=== PATIENT | male | born 1990 | race Caucasian/White ===

== ENCOUNTER 2020-07-03 12:57 | Outpatient (REF) | payer OTHER, SELFPAY ==
[2020-07-03 14:02] LABS: MANUAL DIFF FLAG NO
[2020-07-03 14:11] LABS: Basophils Percent Auto 0.6 % (0-2); Eosinophils Absolute Auto 0.1 X10*3/uL (0.0-0.4); Eosinophils Percent Auto 1.3 % (0-4); Hematocrit 41.9 % (42-52); Hemoglobin 14.6 g/dl (14.0-18.0); Imm Gran Abs Auto 0.01 X10*3/uL (0.00-0.03); Imm Gran Pct Auto 0.1 % (0.0-0.4); Lymphocytes Absolute Auto 2.2 X10*3/uL (1.2-4.9); Lymphocytes Percent Auto 31.9 % (20-40); Mean Corpuscular HGB Conc 34.8 g/dl (31.0-36.0); Mean Corpuscular Hemoglobin 32.7 pg (27.0-33.0); Mean Corpuscular Volume 93.9 fL (80-98); Mean Platelet Volume 10.6 fL (9.4-12.4); Monocytes Absolute Auto 0.6 X10*3/uL (0.1-1.2); Monocytes Percent Auto 9.4 % (2-11); Neutrophils Absolute Auto 3.9 X10*3/uL (2.0-8.3); Neutrophils Percent Auto 56.7 % (45-73); Platelet Count 229 X10*3/uL (160-400); Red Blood Count 4.46 X10*6/uL (4.60-5.80); Red Cell Distribution Width 11.6 % (11.0-16.0); White Blood Count 6.8 X10*3/uL (4.8-10.8)
[2020-07-03 14:27] LABS: Glucose Urine UA NEG (NEG); Leukocyte Esterase Urine NEG (NEG); Nitrite Urine NEG (NEG); Specific Gravity - Urine 1.025 (1.005-1.025); Urine Blood NEG (NEG); Urine Ketones NEG (NEG); Urine Protein NEG (NEG-TRACE)
[2020-07-03 14:33] LABS: Appearance Urine HAZY; Color Urine YELLOW
[2020-07-03 14:52] LABS: Alanine Aminotransferase 42 U/L (0-40); Albumin Level 4.4 g/dL (3.5-5.0); Alkaline Phosphatase 47 U/L (39-117); Anion Gap 16 (12-20); Aspartate Amino Transferase 23 U/L (5-37); Bilirubin Total 0.9 mg/dL (0.0-1.0); Blood Urea Nitrogen 14 mg/dL (9-16); Carbon Dioxide 25 mmol/L (22-29); Chloride 102 mmol/L (96-108); Cholesterol 218 mg/dL; Estimated Glomerular Filt Rate > 60; Glucose Fasting 96 mg/dL (60-99); HDL Cholesterol 45 mg/dL; LDL Cholesterol Calculated 151 mg/dl; Potassium 4.4 mmol/l (3.3-5.1); Sodium 139 mmol/L (135-145); Total Protein 7.5 g/dL (6.5-8.0); Triglycerides 111 mg/dL
[2020-07-03 15:03] LABS: TSH reflex Free T4 1.22 mIU/mL (0.32-4.0)
== END 2020-07-03 12:58 | disposition home or self-care (01) ==
LOC: HO.LAB 12:57
PROVIDERS: PCP Internal Medicine; Visit Provider Internal Medicine
DX: Z00.00 Encounter for general adult medical examination without abnormal findings (principal); E66.3 Overweight; F17.200 Nicotine dependence, unspecified, uncomplicated
CPT/HCPCS: 36415; 80053; 80061; 81003; 84443; 85025

== ENCOUNTER 2022-12-30 16:50 | Outpatient (AMB) | payer OTHER, SELFPAY ==
[2022-12-30 16:58] VITALS: BP 104/70; PULSE 85; O2SAT 99; BMI 21.8
--- NOTE | 2022-12-30 16:58 | A.OFFPC_ITS ---
Vital Signs 12/30/22 16:58 Height 5 ft 11 in Weight 156 lb 4 oz BMI 21.8 BP 104/70 Blood Pressure Location Lt brachial Position Sitting Pulse 85 Pulse Source Pulse Oximeter Pulse Oximetry (%) 99 Oxygen Delivery Method Room Air Intake Visit Reasons: Yearly PE Exercise Specialist Required: No Accompanied by: Self / Same As Patient Allergies amoxicillin Adverse Reaction (Unknown, Verified 12/30/22 17:23) rash Medication List - Last Reconciled 12/30/22 by Kash Pacheco MD No Known Home Meds Tobacco use date assessed: 12/30/22 Dental Screening Dental Screen Date: 12/30/22 Did you have a dental visit in the last 12 months?: Yes Did you have a dental problem in the last 6 months where you did not have access to dental care?: No Was dental information given to patient?: Patient has dentist HPI Yearly PE HPI Details Patient comes in today for his annual physical examination States that he feels okay He has been sober for almost a year now (went to rehab a couple of times last year) States that he has also been trying to eat healthier but has been experiencing increasing anxiety lately, which he feels is making it more difficult for him to implement the lifestyle changes that he wants to do States that he currently has a 5-year-old son and would like to be around for him Patient used to take Fluoxetine but states that he has not been taking it for a while now - does not even remember when he actually stopped taking the medication and why he stopped it; did not also think he was taking it consistently back when he was on it Would also like to continue working on quitting smoking - was called in Rx for Nicotine patches, per his request, a couple of months ago but states that he never went to medicinal plant picker his Rx then and would like to have these prescribed again He denies any headaches or dizziness Denies any chest pains, no shortness of breath No nausea/ vomiting, no abdominal pain No change in bowel habits noted Denies any acute urinary symptoms Patient also did not get his labs ordered last year done so it has been a while since he had any follow-up labs done [facility] Medical History Anxiety Depression ETOH abuse Generalized anxiety disorder Smoker Surgical History No significant past surgical history Family History Mother Esophageal cancer Father No problems noted. Other Substance abuse Social History Housing: House Alcohol intake: former Patient Tobacco Use Status: Current everyday Tobacco user Cigarette Packs Per Day: 2 Second Hand Smoke Exposure: Yes service: No Current occupational status: employed Cognitive needs: No Hearing needs: No Vision needs: No Questionnaire PHQ-9 Over the last 2 weeks, how often have you been bothered by any of the following problems? 1. Little interest or pleasure in doing things: not at all 2. Feeling down, depressed, or hopeless: not at all 3. Trouble falling or staying asleep, or sleeping too much: not at all 4. Feeling tired or having little energy: not at all 5. Poor appetite or overeating: not at all 6. Feeling bad about yourself - or that you are a failure or have let yourself or your family down: not at all 7. Trouble concentrating on things, such as reading the newspaper or watching television: not at all 8. Moving or speaking so slowly that other people could have noticed. Or the opposite - being so fidgety or restless that you have been moving around a lot more than usual: not at all 9. Thoughts that you would be better off or of hurting yourself in some way: not at all Total score: 0 Depression Screening Interpretation: Positive Depression Screening Follow-up: Existing condition and In treatment 22017 - PHQ-9 Billing: Yes Source: Developed by Drs. Christian Bernal, Romelia Donahue, Bharath Strange and colleagues, with an educational to from [employer]. Thrive Questionnaire Date Thrive assessed: 12/30/22 I am a: Patient What is your living situation today?: I have a steady place to live Within the past 12 months, did the food you bought not last and you didn't have the money to get more?: Never true Within the past 12 months, did you worry whether your food would run out before you got money to buy more?: Never true Do you have trouble paying for medicines?: No Do you have trouble getting transportation to medical appointments?: No Do you have trouble paying your heating and electricity bill?: No Do you have trouble taking care of your child, family member or friend?: No Do you have trouble with day-to-day activities such as bathing, preparing meals, shopping, managing finances, etc.?: No Are you currently unemployed and looking for a job?: No Are you interested in more education?: No Please select the resources that you would like help with: None Currently or been in a relationship where the following occur: no concerns reported AUDIT C Alcohol Use Questionnaire (AUDIT-C) 1. How often do you have a drink containing alcohol?: Never 3. How often do you have six or more drinks on one occasion?: Never Total Score: 0 Score Reviewed/Action Taken: Yes KAL-7 AMB Questionnaire KAL-7 Date KAL - 7 assessed: 12/30/22 Feeling nervous, anxious, or on edge: 3 = Nearly every day Not being able to stop or control worryin = Nearly every day Worrying too much about different things: 3 = Nearly every day Trouble relaxin = Nearly every day Being so restless that it is hard to sit still: 3 = Nearly every day Becoming easily annoyed or irritable: 3 = Nearly every day Feeling afraid as if something awful might happen: 3 = Nearly every day Total KAL-7 score (0-4 normal; 5-9 mild; 10-14 moderate; 15-21 severe): 21 Source: Developed by Drs. Christian Bernal, Romelia Donahue, Bharath Strange and colleagues, with an educational to from [employer]. Review of Systems Const Denies chills, Denies difficulty sleeping, Denies fatigue, Denies fever(s), Denies headache(s), Denies malaise and Denies weakness Eyes Denies blurry vision, Denies change in vision, Denies irritation and Denies itchy eyes ENT Denies dysphagia, Denies dizziness, Denies otalgia, Denies headache(s), Denies nasal congestion, Denies neck pain, Denies odynophagia and Denies sore throat Card Denies chest pain, Denies rapid heart rate, Denies irregular heart rhythm, Denies palpitations and Denies dyspnea Resp Denies chest congestion, Denies cough, Denies dyspnea and Denies wheezing GI Denies abdominal pain, Denies bloating, Denies constipation, Denies dysphagia, Denies heartburn, Denies diarrhea, Denies nausea, Denies odynophagia and Denies vomiting Denies hematuria, Denies difficulty urinating, Denies dysuria, Denies urinary frequency and Denies urinary urgency Musc Denies back pain, Denies arthralgias, Denies joint swelling, Denies muscle weakness and Denies neck pain Skin/Breast Denies change in pigmentation, Denies lesions, Denies rash and Denies unusual bruising Neuro Denies dizziness, Denies headache(s), Denies paresthesias and Denies weakness Psych Reports anxiety (increasing) and Denies depression Endo Denies fatigue and Denies palpitations Aller/Immun Denies itchy eyes and Denies wheezing Physical exam (Primary Care) Vital Signs: Last Vital Signs Pulse 85 12/30/22 16:58 BP 104/70 12/30/22 16:58 Pulse Ox 99 12/30/22 16:58 Oxygen Delivery Method Room Air 12/30/22 16:58 BMI result Body Mass Index 21.8 Tobacco/Smoking Status: Tobacco use Status Tobacco use date assessed 12/30/22 12/30/22 17:05 Patient Tobacco Use Status Current everyday Tobacco 12/30/22 17:05 PHQ-9: PHQ-9 Score PHQ-9: Total score 0 12/30/22 17:24 Depression Screening Interpretation: Positive Depression Screening Follow-up: Existing condition and In treatment Thrive Assessment: Date of Thrive Assessment Date Thrive assessed 12/30/22 12/30/22 17:05 Currently or been in a relationship where the following occur: no concerns reported Const General: no acute distress, alert and awake Orientation/consciousness: patient oriented x3 HENMT Head: Yes normocephalic and Yes atraumatic Ears: external ears normal, TM's normal bilaterally and EAC's normal General nose exam: No nasal discharge present Face and sinus: Yes normal facial exam and Yes sinuses nontender Teeth and gingiva: dentition normal Throat: Yes posterior oropharynx normal and Yes tonsils normal (no TP congestion) Eyes Eyelids: Yes eyelids normal Conjunctivae: conjunctivae normal Pupils: Equal, round and reactive pupils present EOM: EOMs intact bilaterally Neck Neck: Yes no lymphadenopathy and Yes supple Thyroid: Thyroid normal Resp Auscultation: clear to auscultation bilaterally, no rales and no wheezes Cardio Rate: regular rate Rhythm: regular rhythm Heart sounds: no murmurs GI Palpation (GI): Soft to palpation, nontender and No hepatosplenomegaly present Auscultation: normal bowel sounds General: Yes no CVA tenderness Back/Spine/Pelvis Back: no CVA tenderness Thoracic/Lumbar Spine: thoracic and lumbar spine normal to inspection Skin Lesions: no lesions Rashes: no rashes Neuro General: patient oriented x3, moves all extremities, no focal motor deficits and CN's II-XI intact bilaterally Cranial nerves: Yes Equal, round and reactive pupils present Cognition (Neuro): normal cognition Gait exam (Neuro): Normal gait present Extrem General: Yes no clubbing, cyanosis or edema Assessment and Plan Assessment & Plan (1) Annual physical exam: Code(s): Z00.00 - Encounter for general adult medical examination without abnormal findings Plan: Check labs (2) ETOH abuse: Code(s): F10.10 - Alcohol abuse, uncomplicated Plan: Has been sober for almost a year now and feels that he is doing very well Has been treated with Naltrexone tablets in the past and switched to Vivitrol injections by [facility] in [place] last year but is now OFF all medications; also went to rehab a couple of times last year (3) Anxiety: Code(s): F41.9 - Anxiety disorder, unspecified Plan: Continue Lorazepam 0.5 mg QD PRN; will start him on Bupropion XL 150 mg QD Follow up with mental health therapist as scheduled (4) Depression: Code(s): F32.A - Depression, unspecified Qualifiers: Depression Type: major depressive disorder Major depression recurrence: recurrent Active/Remission status: currently active Major depression episode severity: unspecified Qualified Code(s): F33.9 - Major depressive disorder, recurrent, unspecified Plan: Follow up with therapist/counselor as scheduled Will be started on Bupropion XL 150 mg QD (5) Smoker: Code(s): F17.200 - Nicotine dependence, unspecified, uncomplicated Plan: Counseled again on smoking cessation Was prescribed Nicotine patches before but admits that he never started using them but is now willing to do so - Rx resent Plan Follow up in 3 months Orders: Orders Complete Blood Count Auto Diff 12/30/22 Z00.00 - Encounter for general adult medical examination without abnormal findings Comprehensive [place]. Panel Fast 12/30/22 Z00.00 - Encounter for general adult medical examination without abnormal findings Lipid Panel 12/30/22 E78.00 - Pure hypercholesterolemia, unspecified, Z00.00 - Encounter for general adult medical examination without abnormal findings TSH reflex Free T4 12/30/22 E78.00 - Pure hypercholesterolemia, unspecified, Z00.00 - Encounter for general adult medical examination without abnormal findings UA CC w/rflx Micro + Cult 12/30/22 R30.0 - Dysuria, Z00.00 - Encounter for general adult medical examination without abnormal findings Vitamin D 25-OH Total 12/30/22 E55.9 - Vitamin D deficiency, unspecified, Z00.00 - Encounter for general adult medical examination without abnormal findings Medications: New bupropion HCl 150 mg PO QAM 30 days 30 tabs 3RF Refilled nicotine 1 patch transdermal DAILY 7 days 7 ea 0RF F17.200 - Nicotine dependen ce, unspecified, uncomplicated nicotine 1 patch transdermal Q24H 28 days 28 ea 3RF F17.200 - Nicotine dependence, unspecified, uncomplicated nicotine 1 patch transdermal DAILY 7 days 7 ea 0RF F17.200 - Nicotine dependence, unspecified, uncomplicated lorazepam 0.5 mg PO BEDTIME 30 days PRN 15 tabs 0RF anxiety F41.9 - Anxiety disorder, unspecified Coding Level of Care Code Est Pt Prev Care 18-39y(77024) Diagnoses Annual physical exam Z00.00 ETOH abuse F10.10 Anxiety F41.9 Depression F33.9 Depression Type: major depressive disorder Major depression recurrence: recurrent Active/Remission status: currently active Major depression episode severity: unspecified Smoker F17.200
== END 2022-12-30 17:51 | disposition home or self-care (01) ==
PROVIDERS: PCP Internal Medicine; Visit Provider Internal Medicine
DX: Z00.00 Encounter for general adult medical examination without abnormal findings (principal); F41.9 Anxiety disorder, unspecified; F33.9 Major depressive disorder, recurrent, unspecified; F17.200 Nicotine dependence, unspecified, uncomplicated; F10.10 Alcohol abuse, uncomplicated
CPT/HCPCS: 99395

== ENCOUNTER 2023-06-16 11:26 | Outpatient (REF) | payer OTHER, SELFPAY ==
[2023-06-16 11:55] LABS: MANUAL DIFF FLAG NO
[2023-06-16 12:18] LABS: Basophils Absolute Auto 0.1 X10*3/uL (0.0-0.2); Basophils Percent Auto 1.1 % (0-2); Eosinophils Absolute Auto 0.2 X10*3/uL (0.0-0.4); Eosinophils Percent Auto 2.8 % (0-4); Hematocrit 42.8 % (42.0-52.0); Hemoglobin 14.3 g/dl (14.0-18.0); Imm Gran Abs Auto 0.02 X10*3/uL (0.00-0.03); Imm Gran Pct Auto 0.4 % (0.0-0.4); Lymphocytes Absolute Auto 2.2 X10*3/uL (1.2-4.9); Lymphocytes Percent Auto 41.1 % (20-40); Mean Corpuscular HGB Conc 33.4 g/dl (31.0-36.0); Mean Corpuscular Hemoglobin 30.9 pg (27.0-33.0); Mean Corpuscular Volume 92.4 fL (80.0-98.0); Mean Platelet Volume 9.8 fL (9.4-12.4); Monocytes Absolute Auto 0.4 X10*3/uL (0.1-1.2); Monocytes Percent Auto 7.8 % (2-11); Neutrophils Absolute Auto 2.5 x10*3/uL (2.0-8.3); Neutrophils Percent Auto 46.8 % (45-73); Platelet Count 253 X10*3/uL (160-400); Red Blood Count 4.63 X10*6/uL (4.60-5.80); Red Cell Distribution Width 12.3 % (11.0-16.0); White Blood Count 5.4 X10*3/uL (4.8-10.8)
[2023-06-16 12:46] LABS: Appearance Urine Clear; Color Urine Yellow; Glucose Urine UA Negative (Negative); Leukocyte Esterase Urine Negative (Negative); Nitrite Urine Negative (Negative); PH 6.5 (5.0-9.0); Specific Gravity - Urine 1.015 (1.005-1.025); Urine Blood Negative (Negative); Urine Ketones Negative (Negative); Urine Protein Negative (Neg-Trace)
[2023-06-16 12:54] LABS: Alanine Aminotransferase 21 U/L (0-40); Albumin Level 4.2 g/dL (3.5-5.0); Alkaline Phosphatase 55 U/L (39-117); Anion Gap 10 (12-20); Aspartate Amino Transferase 17 U/L (5-37); Bilirubin Total 0.4 mg/dL (0.0-1.0); Blood Urea Nitrogen 8 mg/dL (9-16); Calcium 9.3 mg/dL (8.4-10.2); Carbon Dioxide 28 mmol/L (22-29); Chloride 108 mmol/L (96-108); Cholesterol 164 mg/dL (<200); Estimated Glomerular Filt Rate > 60; Glucose Fasting 103 mg/dL (60-99); HDL Cholesterol 43 mg/dL (>40); LDL Cholesterol Calculated 116 mg/dL (<100); Potassium 4.3 mmol/L (3.3-5.1); Sodium 142 mmol/L (135-145); Total Protein 7.1 g/dL (6.5-8.0); Triglycerides 29 mg/dL (<150)
[2023-06-16 13:11] LABS: TSH reflex Free T4 0.82 uIU/mL (0.32-4.0)
== END 2023-06-16 11:27 | disposition home or self-care (01) ==
LOC: HO.LAB 11:26
PROVIDERS: PCP Internal Medicine; Visit Provider Internal Medicine
DX: Z00.00 Encounter for general adult medical examination without abnormal findings (principal); E55.9 Vitamin D deficiency, unspecified; E78.00 Pure hypercholesterolemia, unspecified; R30.0 Dysuria
CPT/HCPCS: 36415; 80053; 80061; 81003; 82306; 84443; 85025

== ENCOUNTER 2023-06-21 15:58 | Outpatient (AMB) | payer OTHER, SELFPAY ==
[2023-06-21 15:58] VITALS: BP 110/80; PULSE 98; O2SAT 99; BMI 22.1
--- NOTE | 2023-06-21 15:58 | A.OFFPC_ITS ---
Vital Signs 06/21/23 15:58 Height 5 ft 11 in Weight 158 lb 6 oz BMI 22.1 BP 110/80 Blood Pressure Location Lt brachial Position Sitting Pulse 98 Pulse Source Pulse Oximeter Pulse Oximetry (%) 99 Oxygen Delivery Method Room Air Intake Visit Reasons: Anxiety/ Labs Follow Up Seismograph Computer Required: No Accompanied by: Self / Same As Patient Allergies amoxicillin Adverse Reaction (Unknown, Verified 06/21/23 16:24) rash Medication List - Last Reconciled 06/21/23 by Kash Pacheco MD nicotine 1 patch transdermal DAILY 7 days nicotine 1 patch transdermal Q24H 28 days nicotine 1 patch transdermal DAILY 7 days Tobacco use date assessed: 06/21/23 Dental Screening Dental Screen Date: 06/21/23 Did you have a dental visit in the last 12 months?: Yes Did you have a dental problem in the last 6 months where you did not have access to dental care?: No Was dental information given to patient?: Patient has dentist HPI Anxiety/ Labs Follow Up HPI Details Patient comes in today for his follow up visit States that he feels okay States that he now has a new job and his anxiety has been doing much better lately Admits that he never started on the Bupropion and Clonazepam that he was prescribed months ago and prefers not to take the Rx if he can avoid it States that he has been attending therapy/counseling and feels that these have helped a lot He denies any headaches or dizziness Denies any chest pains, no SOB No nausea/vomiting, no abdominal pain No change in bowel habits noted He would like to get a refill on his nicotine patches - was able to quit smoking but picked it up again over the recent holidays Had his follow up labs done a few days ago - to discuss his results [facility] Medical History (Updated 06/21/23 @ 16:37 by Kash Pacheco MD) Vitamin D deficiency Pure hypercholesterolemia Depression ETOH abuse Smoker Anxiety Generalized anxiety disorder Surgical History No significant past surgical history Family History Mother Esophageal cancer Father No problems noted. Other Substance abuse Social History Housing: House Alcohol intake: former Patient Tobacco Use Status: Current everyday Tobacco user Cigarette Packs Per Day: 2 e-Cigarette/Vaping Use: Never Used Second Hand Smoke Exposure: Yes service: No Current occupational status: employed Cognitive needs: No Hearing needs: No Vision needs: No Questionnaire PHQ-9 Over the last 2 weeks, how often have you been bothered by any of the following problems? 1. Little interest or pleasure in doing things: not at all 2. Feeling down, depressed, or hopeless: not at all 3. Trouble falling or staying asleep, or sleeping too much: not at all 4. Feeling tired or having little energy: not at all 5. Poor appetite or overeating: not at all 6. Feeling bad about yourself - or that you are a failure or have let yourself or your family down: not at all 7. Trouble concentrating on things, such as reading the newspaper or watching television: not at all 8. Moving or speaking so slowly that other people could have noticed. Or the opposite - being so fidgety or restless that you have been moving around a lot more than usual: not at all 9. Thoughts that you would be better off or of hurting yourself in some way: not at all Total score: 0 Depression Screening Interpretation: Positive Depression Screening Follow-up: Existing condition and In treatment Depression Screening Done: Yes 24488 - PHQ-9 Billing: Yes Source: Developed by Drs. Christian Bernal, Romelia Donahue, Bharath Strange and colleagues, with an educational to from [employer]. Thrive Questionnaire Date Thrive assessed: 06/21/23 I am a: Patient What is your living situation today?: I have a steady place to live Within the past 12 months, did the food you bought not last and you didn't have the money to get more?: Never true Within the past 12 months, did you worry whether your food would run out before you got money to buy more?: Never true Do you have trouble paying for medicines?: No Do you have trouble getting transportation to medical appointments?: No Do you have trouble paying your heating and electricity bill?: No Do you have trouble taking care of your child, family member or friend?: No Do you have trouble with day-to-day activities such as bathing, preparing meals, shopping, managing finances, etc.?: No Are you currently unemployed and looking for a job?: No Are you interested in more education?: No Please select the resources that you would like help with: None Currently or been in a relationship where the following occur: no concerns re ported AUDIT C Alcohol Use Questionnaire (AUDIT-C) 1. How often do you have a drink containing alcohol?: Never 3. How often do you have six or more drinks on one occasion?: Never Total Score: 0 Score Reviewed/Action Taken: Yes KAL-7 AMB Questionnaire KAL-7 Date KAL - 7 assessed: 06/21/23 Feeling nervous, anxious, or on edge: 1 = Several days Not being able to stop or control worryin = Several days Worrying too much about different things: 1 = Several days Trouble relaxin = Several days Being so restless that it is hard to sit still: 1 = Several days Becoming easily annoyed or irritable: 1 = Several days Feeling afraid as if something awful might happen: 1 = Several days Total KAL-7 score (0-4 normal; 5-9 mild; 10-14 moderate; 15-21 severe): 7 Source: Developed by Drs. Christian Bernal, Romelia Donahue, Bharath Strange and colleagues, with an educational to from [employer]. Review of Systems Const Denies chills, Denies difficulty sleeping, Denies fatigue, Denies fever(s) and Denies headache(s) ENT Denies dysphagia, Denies dizziness, Denies otalgia, Denies headache(s), Denies neck pain, Denies odynophagia and Denies sore throat Card Denies chest pain, Denies rapid heart rate, Denies irregular heart rhythm, Denies palpitations and Denies dyspnea Resp Denies chest congestion, Denies cough, Denies dyspnea and Denies wheezing GI Denies abdominal pain, Denies constipation, Denies dysphagia, Denies heartburn, Denies diarrhea, Denies nausea, Denies odynophagia and Denies vomiting Denies difficulty urinating, Denies dysuria and Denies urinary frequency Musc Denies back pain, Denies arthralgias and Denies neck pain Skin/Breast Denies rash Neuro Denies dizziness, Denies headache(s) and Denies paresthesias Psych Denies anxiety (much better lately) and Denies depression Endo Denies fatigue and Denies palpitations Aller/Immun Denies wheezing Physical exam (Primary Care) Vital Signs: Last Vital Signs Pulse 98 06/21/23 15:58 BP 110/80 06/21/23 15:58 Pulse Ox 99 06/21/23 15:58 Oxygen Delivery Method Room Air 06/21/23 15:58 BMI result Body Mass Index 22.1 Tobacco/Smoking Status: Tobacco use Status Tobacco use date assessed 06/21/23 06/21/23 16:01 Patient Tobacco Use Status Current everyday Tobacco 06/21/23 16:01 e-Cigarette/Vaping Use Never Used 06/21/23 16:01 PHQ-9: PHQ-9 Score PHQ-9: Total score 0 06/21/23 16:08 Depression Screening Interpretation: Positive Depression Screening Follow-up: Existing condition and In treatment Thrive Assessment: Date of Thrive Assessment Date Thrive assessed 06/21/23 06/21/23 16:01 Currently or been in a relationship where the following occur: no concerns reported Const General: no acute distress and alert HENMT Ears: TM's normal bilaterally and EAC's normal Throat: Yes posterior oropharynx normal and Yes tonsils normal (no TP congestion) Neck Neck: Yes no lymphadenopathy and Yes supple Resp Auscultation: clear to auscultation bilaterally, no rales and no wheezes Cardio Rate: regular rate Rhythm: regular rhythm Heart sounds: no murmurs GI Palpation (GI): Soft to palpation, nontender and No hepatosplenomegaly present Skin General skin exam: no rashes or lesions noted Extrem General: Yes no clubbing, cyanosis or edema Results Reviewed Results Reviewed: Laboratory Tests 06/16/23 06/16/23 06/16/23 11:47 11:47 11:50 WBC 5.4 Hgb 14.3 Hct 42.8 Plt Count 253 Sodium 142 Potassium 4.3 Creatinine 0.87 Estimated GFR > 60 Fasting Glucose 103 H Calcium 9.3 AST 17 ALT 21 Triglycerides Cholesterol LDL Cholesterol, Calc 116 H HDL Cholesterol 43 25-OH Vitamin D Total 17.0 L TSH 0.82 Ur Specific [place] 1.015 Urine Protein Negative Urine Glucose (UA) Negative Urine Blood Negative Urine Nitrite Negative Ur Leukocyte Esterase Negative 01/10/24 01/10/24 11:50 11:50 WBC Hgb Hct Plt Count Sodium Potassium Creatinine Estimated GFR Fasting Glucose Calcium AST ALT Triglycerides 29 Cholesterol 164 LDL Cholesterol, Calc HDL Cholesterol 25-OH Vitamin D Total TSH Ur Specific [place] Urine Protein Urine Glucose (UA) Urine Blood Urine Nitrite Ur Leukocyte Esterase Assessment and Plan Assessment & Plan (1) Pure hypercholesterolemia: Code(s): E78.00 - Pure hypercholesterolemia, unspecified Plan: Results of his labs done a few days ago reviewed and discussed with patient - is advised that his recent cholesterol numbers have improved significantly from his numbers back in 2020 Reinforced low cholesterol diet (2) Vitamin D deficiency: Code(s): E55.9 - Vitamin D deficiency, unspecified Plan: Advised that his Vitamin D level was very low on his recent labs Will start him on Vitamin D3 2000 units QD (3) ETOH abuse: Code(s): F10.10 - Alcohol abuse, uncomplicated Plan: Has been sober for over a year now and feels that he is doing very well Has been treated with Naltrexone tablets in the past and switched to Vivitrol injections by [facility] in [place] last year but is now OFF all medications; also went to rehab a couple of times last year (4) Anxiety: Code(s): F41.9 - Anxiety disorder, unspecified Plan: He was started on Lorazepam 0.5 mg QD PRN and Bupropion XL 150 mg QD at his last visit but he admits that he never started taking the medications Follow up with mental health therapist as scheduled (5) Depression: Code(s): F32.A - Depression, unspecified Qualifiers: Depression Type: major depressive disorder Major depression recurrence: recurrent Active/Remission status: currently active Major depression episode severity: unspecified Qualified Code(s): F33.9 - Major depressive disorder, recurrent, unspecified Plan: Follow up with therapist/counselor as scheduled Was previously prescribed Bupropion XL 150 mg QD but admits that he never started taking the Rx and feels that he is doing much better now and does not need to go on Rx at this time (6) Smoker: Code(s): F17.200 - Nicotine dependence, unspecified, uncomplicated Plan: Counseled again on smoking cessation Will start him back on Nicotine patches to help him quit smoking again Plan To return in 6 months for his next annual physical examination Medications: New cholecalciferol (vitamin D3) 50 mcg PO DAILY 90 days 90 caps 3RF E55.9 - Vitamin D deficiency, unspecified Refilled nicotine 1 patch transdermal Q24H 28 days 28 ea 3RF F17.200 - Nicotine d ependence, unspecified, uncomplicated nicotine 1 patch transdermal DAILY 7 days 7 ea 0RF F17.200 - Nicotine dependence, unspecified, uncomplicated nicotine 1 patch transdermal DAILY 7 days 7 ea 0RF F17.200 - Nicotine dependence, unspecified, uncomplicated Coding Level of Care Code Est Pt Level 4 (40631) Diagnoses Pure hypercholesterolemia E78.00 Vitamin D deficiency E55.9 ETOH abuse F10.10 Anxiety F41.9 Episode of recurrent major depressive disorder, unspecified depression episode severity F33.9 Depression Type: major depressive disorder Major depression recurrence: recurrent Active/Remission status: currently active Major depression episode severity: unspecified Smoker F17.200
== END 2023-06-21 16:32 | disposition home or self-care (01) ==
PROVIDERS: PCP Internal Medicine; Visit Provider Internal Medicine
DX: E78.00 Pure hypercholesterolemia, unspecified (principal); F33.9 Major depressive disorder, recurrent, unspecified; E55.9 Vitamin D deficiency, unspecified; F10.10 Alcohol abuse, uncomplicated; F41.9 Anxiety disorder, unspecified; F17.210 Nicotine dependence, cigarettes, uncomplicated
CPT/HCPCS: 99214

== ENCOUNTER 2024-01-03 15:02 | Outpatient (AMB) | payer OTHER, SELFPAY ==
[2024-01-03 15:04] VITALS: BP 118/72; PULSE 101; O2SAT 97; BMI 22.6
--- NOTE | 2024-01-03 15:04 | MHC.PC.OV ---
Vital Signs 01/03/24 15:04 Height 5 ft 11 in Weight 162 lb 0.4 oz BMI 22.6 BP 118/72 Blood Pressure Location Lt brachial Position Sitting Pulse 101 H Pulse Source Pulse Oximeter Pulse Oximetry (%) 97 Oxygen Delivery Method Room Air Intake Visit Reasons: Annual Exam Intake Note: Patient is here today for a physical. Community Development Aide Required: No Allergies amoxicillin Adverse Reaction (Unknown, Verified 01/09/24 20:54) rash Medication List - Last Reconciled 01/09/24 by Kash Pacheco MD cholecalciferol (vitamin D3) 50 mcg PO DAILY 90 days lorazepam 0.5 mg PO BEDTIME PRN 30 days nicotine 1 patch transdermal Q24H 28 days nicotine 1 patch transdermal DAILY 7 days nicotine 1 patch transdermal DAILY 7 days Tobacco use date assessed: 01/03/24 Dental Screening Dental Screen Date: 01/03/24 Did you have a dental visit in the last 12 months?: Yes Did you have a dental problem in the last 6 months where you did not have access to dental care?: No Was dental information given to patient?: Patient has dentist HPI Annual Exam HPI Details Patient comes in today for his annual physical examination States that he feels okay He denies any headaches or dizziness Denies any chest pains, no shortness of breath No nausea/ vomiting, no abdominal pain No change in bowel habits noted He denies any acute urinary symptoms He continues to attend his therapy/counseling sessions regularly and feels that they are helping a lot Needs his Lorazepam Rx refilled today He would also like to know how he did on his labs done back in June 2023 [facility] Medical History Vitamin D deficiency Pure hypercholesterolemia Depression ETOH abuse Smoker Anxiety Generalized anxiety disorder Surgical History No significant past surgical history Family History Mother Esophageal cancer Father No problems noted. Other Substance abuse Social History Housing: House Alcohol intake: former Patient Tobacco Use Status: Current everyday Tobacco user Tobacco use type: Cigarette Cigarette Packs Per Day: 1 e-Cigarette/Vaping Use: Never Used Second Hand Smoke Exposure: Yes service: No Current occupational status: employed Cognitive needs: No Hearing needs: No Vision needs: No Questionnaire PHQ-9 Over the last 2 weeks, how often have you been bothered by any of the following problems? 1. Little interest or pleasure in doing things: not at all 2. Feeling down, depressed, or hopeless: not at all 3. Trouble falling or staying asleep, or sleeping too much: not at all 4. Feeling tired or having little energy: not at all 5. Poor appetite or overeating: not at all 6. Feeling bad about yourself - or that you are a failure or have let yourself or your family down: not at all 7. Trouble concentrating on things, such as reading the newspaper or watching television: not at all 8. Moving or speaking so slowly that other people could have noticed. Or the opposite - being so fidgety or restless that you have been moving around a lot more than usual: not at all 9. Thoughts that you would be better off or of hurting yourself in some way: not at all Total score: 0 Depression Screening Interpretation: Positive Depression Screening Follow-up: Existing condition and In treatment Depression Screening Done: Yes 39888 - PHQ-9 Billing: Yes Source: Developed by Drs. Christian Bernal, Romelia Donahue, Bharath Strange and colleagues, with an educational to from [employer]. Thrive Questionnaire Date Thrive assessed: 06/21/23 I am a: Patient What is your living situation today?: I have a steady place to live Within the past 12 months, did the food you bought not last and you didn't have the money to get more?: Never true Within the past 12 months, did you worry whether your food would run out before you got money to buy more?: Never true Do you have trouble paying for medicines?: No Do you have trouble getting transportation to medical appointments?: No Do you have trouble paying your heating and electricity bill?: No Do you have trouble taking care of your child, family member or friend?: No Do you have trouble with day-to-day activities such as bathing, preparing meals, shopping, managing finances, etc.?: No Are you currently unemployed and looking for a job?: No Are you interested in more education?: No Please select the resources that you would like help with: None Currently or been in a relationship where the following occur: No concerns reported THRIVE Score: 0 AUDIT C Alcohol Use Questionnaire (AUDIT-C) 1. How often do you have a drink containing alcohol?: Never 3. How often do you have six or more drinks on one occasion?: Never Total Score: 0 Score Reviewed/Action Taken: Yes KAL-7 AMB Questionnaire KAL-7 Date KAL - 7 assessed: 06/21/23 Feeling nervous, anxious, or on edge: 1 = Several days Not being able to stop or control worryin = Several days Worrying too much about different things: 1 = Several days Trouble relaxin = Several days Being so restless that it is hard to sit still: 1 = Several days Becoming easily annoyed or irritable: 1 = Several days Feeling afraid as if something awful might happen: 1 = Several days Total KAL-7 score (0-4 normal; 5-9 mild; 10-14 moderate; 15-21 severe): 7 Source: Developed by Drs. Christian Bernal, Romelia Donahue, Bharath Strange and colleagues, with an educational ot from [employer]. Review of Systems Const Denies chills, Denies fatigue, Denies fever(s), Denies headache(s), Denies malaise and Denies weakness Eyes Denies blurry vision, Denies change in vision, Denies irritation and Denies itchy eyes ENT Denies dysphagia, Denies dizziness, Denies otalgia, Denies headache(s), Denies nasal congestion, Denies neck pain, Denies odynophagia and Denies sore throat Card Denies chest pain, Denies rapid heart rate, Denies irregular heart rhythm, Denies palpitations and Denies dyspnea Resp Denies chest congestion, Denies cough, Denies dyspnea and Denies wheezing GI Denies abdominal pain, Denies bloating, Denies constipation, Denies dysphagia, Denies heartburn, Denies diarrhea, Denies nausea, Denies odynophagia and Denies vomiting Denies hematuria, Denies difficulty urinating, Denies dysuria, Denies urinary frequency and Denies urinary urgency Musc Denies back pain, Denies arthralgias, Denies joint swelling, Denies muscle weakness and Denies neck pain Skin/Breast Denies change in pigmentation, Denies lesions, Denies rash and Denies unusual bruising Neuro Denies dizziness, Denies headache(s), Denies paresthesias and Denies weakness Psych Reports anxiety (controlled) Endo Denies fatigue and Denies palpitations Aller/Immun Denies itchy eyes and Denies wheezing Physical exam (Primary Care) Vital Signs: Last Vital Signs Pulse 101 H 01/03/24 15:04 BP 118/72 01/03/24 15:04 Pulse Ox 97 01/03/24 15:04 Oxygen Delivery Method Room Air 01/03/24 15:04 BMI result Body Mass Index 22.6 Tobacco/Smoking Status: Tobacco use Status Tobacco use date assessed 01/03/24 01/03/24 15:10 Patient Tobacco Use Status Current everyday Tobacco 01/03/24 15:07 Tobacco use type Cigarette 01/03/24 15:10 e-Cigarette/Vaping Use Never Used 01/03/24 15:07 PHQ-9: PHQ-9 Score PHQ-9: Total score 0 01/03/24 15:50 Depression Screening Interpretation: Positive Depression Screening Follow-up: Existing condition and In treatment Thrive Assessment: Date of Thrive Assessment Date Thrive assessed 06/21/23 01/03/24 15:07 Currently or been in a relationship where the following occur: No concerns reported Const General: no acute distress, alert and awake Orientation/consciousness: patient oriented x3 HENMT Head: Yes normocephalic and Yes atraumatic Ears: external ears normal, TM's normal bilaterally and EAC's normal General nose exam: No nasal discharge present Face and sinus: Yes normal facial exam and Yes sinuses nontender Teeth and gingiva: dentition normal Throat: Yes posterior oropharynx normal and Yes tonsils normal (no TP congestion) Eyes Eyelids: Yes eyelids normal Conjunctivae: conjunctivae normal Pupils: Equal, round and reactive pupils present EOM: EOMs intact bilaterally Neck Neck: Yes no lymphadenopathy and Yes supple Thyroid: Thyroid normal Resp Auscultation: clear to auscultation bilaterally, no rales and no wheezes Cardio Rate: regular rate Rhythm: regular rhythm Heart sounds: no murmurs GI Palpation (GI): Soft to palpation, nontender and No hepatosplenomegaly present Auscultation: normal bowel sounds General: Yes no CVA tenderness Back/Spine/Pelvis Back: no CVA tenderness Thoracic/Lumbar Spine: thoracic and lumbar spine normal to inspection Skin Lesions: no lesions Rashes: no rashes Neuro General: patient oriented x3, moves all extremities, no focal motor deficits and CN's II-XI intact bilaterally Cranial nerves: Yes Equal, round and reactive pupils present Cognition (Neuro): normal cognition Gait exam (Neuro): Normal gait present Extrem General: Yes no clubbing, cyanosis or edema Results Reviewed Results Reviewed: Laboratory Tests 06/16/23 06/16/23 11:47 11:50 WBC 5.4 Hgb 14.3 Hct 42.8 Plt Count 253 Sodium 142 Potassium 4.3 Creatinine 0.87 Estimated GFR > 60 Fasting Glucose 103 H Calcium 9.3 AST 17 ALT 21 Triglycerides 29 Cholesterol 164 LDL Cholesterol, Calc 116 H HDL Cholesterol 43 25-OH Vitamin D Total 17.0 L TSH 0.82 Ur Specific [place] 1.015 Urine Protein Negative Urine Glucose (UA) Negative Urine Blood Negative Urine Nitrite Negative Ur Leukocyte Esterase Negative Assessment and Plan Assessment & Plan (1) Annual physical exam: Code(s): Z00.00 - Encounter for general adult medical examination without abnormal findings Plan: Results of his labs done back in June 2023 reviewed and discussed with patient (2) Pure hypercholesterolemia: Code(s): E78.00 - Pure hypercholesterolemia, unspecified Plan: He is advised again that his recent cholesterol numbers have improved significantly from his numbers back in 2020 Reinforced low cholesterol diet Will recheck his labs and fasting lipids again in 1 year for follow-up (3) Vitamin D deficiency: Code(s): E55.9 - Vitamin D deficiency, unspecified Plan: Continue Vitamin D3 2000 units QD (4) ETOH abuse: Code(s): F10.10 - Alcohol abuse, uncomplicated Plan: Has been sober for over a year now and feels that he is doing very well Has been treated with Naltrexone tablets in the past and switched to Vivitrol injections by [facility] in [place] last year but is now OFF all medications; he also went to rehab a couple of times last year (5) Anxiety: Code(s): F41.9 - Anxiety disorder, unspecified Plan: Continue Lorazepam 0.5 mg QD PRN He was also started on Bupropion XL 150 mg QD last year but he admits that he never started taking the medication and prefers not to start on it unless absolutely necessary Follow up with mental health therapist regularly as scheduled (6) Depression: Code(s): F32.A - Depression, unspecified Qualifiers: Depression Type: major depressive disorder Major depression recurrence: recurrent Active/Remission status: currently active Major depression episode severity: unspecified Qualified Code(s): F33.9 - Major depressive disorder, recurrent, unspecified Plan: Follow up with therapist/counselor as scheduled He was previously prescribed Bupropion XL 150 mg QD but admits that he never started taking the Rx and feels that he is doing much better now and does not need to go on Rx at this time (7) Smoker: Code(s): F17.200 - Nicotine dependence, unspecified, uncomplicated Plan: Counseled again on smoking cessation Plan To return in 1 year for his next annual physical examination Orders: Orders Complete Blood Count Auto Diff 1 Year D64.9 - Anemia, unspecified, Z00.00 - Encounter for general adult medical examination without abnormal findings Comprehensive [place]. Panel Fast 1 Year E78.00 - Pure hypercholesterolemia, unspecified, Z00.00 - Encounter for general adult medical examination without abnormal findings Lipid Panel 1 Year E78.00 - Pure hypercholesterolemia, unspecified, Z00.00 - Encounter for general adult medical examination without abnormal findings UA CC w/rflx Micro + Cult 1 Year R30.0 - Dysuria, Z00.00 - Encounter for general adult medical examination without abnormal findings TSH reflex Free T4 1 Year E78.00 - Pure hypercholesterolemia, unspecified, Z00.00 - Encounter for general adult medical examination without abnormal findings Vitamin D 25-OH Total 1 Year E55.9 - Vitamin D deficiency, unspecified, Z00.00 - Encounter for general adult medical examination without abnormal findings Medications: Refilled lorazepam 0.5 mg PO BEDTIME 30 days PRN 15 tabs 0RF anxiety F41.9 - Anxiety disorder, unspecified Coding Level of Care Code Est Pt Prev Care [id number]) Diagnoses Annual physical exam Z00.00 Pure hypercholesterolemia E78.00 Vitamin D deficiency E55.9 ETOH abuse F10.10 Anxiety F41.9 Episode of recurrent major depressive disorder, unspecified depression episode severity F33.9 Depression Type: major depressive disorder Major depression recurrence: recurrent Active/Remission status: currently active Major depression episode severity: unspecified Smoker F17.200
== END 2024-01-03 15:59 | disposition home or self-care (01) ==
PROVIDERS: PCP Internal Medicine; Visit Provider Internal Medicine
DX: Z00.00 Encounter for general adult medical examination without abnormal findings (principal); F33.9 Major depressive disorder, recurrent, unspecified; E55.9 Vitamin D deficiency, unspecified; E78.00 Pure hypercholesterolemia, unspecified; F10.10 Alcohol abuse, uncomplicated; F41.9 Anxiety disorder, unspecified; F17.200 Nicotine dependence, unspecified, uncomplicated
CPT/HCPCS: 99395

== ENCOUNTER 2025-01-01 11:36 | Outpatient (REF) | payer OTHER, SELFPAY ==
[2025-01-01 11:53] LABS: MANUAL DIFF FLAG NO
[2025-01-01 12:17] LABS: Hematocrit 39.3 % (42.0-52.0); Hemoglobin 13.8 g/dl (14.0-18.0); Imm Gran Abs Auto 0.04 X10*3/uL (0.00-0.03); Imm Gran Pct Auto 0.4 % (0.0-0.4); Lymphocytes Absolute Auto 2.5 X10*3/uL (1.2-4.9); Mean Corpuscular HGB Conc 35.1 g/dl (31.0-36.0); Mean Corpuscular Hemoglobin 31.7 pg (27.0-33.0); Mean Corpuscular Volume 90.3 fL (80.0-98.0); NRBC Abs Auto 0.000 X10*3/uL (0.0-0.012); NRBC Pct Auto 0.0 /100WBC (0.0-0.2); Platelet Count 241 X10*3/uL (160-400); Red Blood Count 4.35 X10*6/uL (4.60-5.80); White Blood Count 10.5 X10*3/uL (4.8-10.8)
[2025-01-01 12:44] LABS: Appearance Urine Clear; Glucose Urine UA Negative (Negative); PH 6.5 (5.0-9.0); Specific Gravity - Urine 1.025 (1.005-1.025)
[2025-01-01 12:47] LABS: Alanine Aminotransferase 37 U/L (0-40); Albumin Level 4.4 g/dL (3.5-5.0); Alkaline Phosphatase 60 U/L (39-117); Anion Gap 11 (12-20); Aspartate Amino Transferase 31 U/L (5-37); Blood Urea Nitrogen 11 mg/dL (9-16); Calcium 8.9 mg/dL (8.4-10.2); Carbon Dioxide 26 mmol/L (22-29); Chloride 108 mmol/L (96-108); Cholesterol 181 mg/dL (<200); Estimated Glomerular Filt Rate > 60; HDL Cholesterol 34 mg/dL (>40); Potassium 4.1 mmol/L (3.3-5.1); Sodium 141 mmol/L (135-145); Total Protein 7.0 g/dL (6.5-8.0); Triglycerides 79 mg/dL (<150)
--- OUTSIDE RECORDS SUMMARY | 2025-01-01 12:53 | XMS_ITS | Encounter Summary ---
Author Organization [facility] Address [address] [facility] [address] [place] [phone] Phone Care Team Providers Care Chemists Name Role Phone Kash Pacheco MD Primary Care Provider [phone] Encounter Details Date Type Department Care Team (Late st Contact Info) Description 12/27/2024 Orders Only [facility] [address] [address] [address], [address] [place] [address] Social History Tobacco Use Types Packs/Day Years Used Date Smoking Tobacco: Every Day Cigarettes Smokeless Tobacco: Never Alcohol Use Standard Drinks/Week Comments Yes 21 (1 standard drink = 0.6 oz pu re alcohol) 1.5 pints vodka a day Education Answer Date Recorded Are you interested in more education? Not on ginny e 10/02/2022 Are you concerned about learning? Not on file 10/02/2022 No 10/02/2022 No 10/02/2022 Digital Access Answer Date Recorded No 11/02/2022 No 11/02/2022 Reliable internet access at home? Not on file 11/02/2022 Device with a working camera? Not on file Intimate Partner Violence Answer Date R ecorded Are you denied basic needs s uch as food, clothing, or medical care? No 03/31/2023 In the past 12 months have y ou been in a relationship with a person who hurts, threatens, or tries to control you? No 03/31/2023 Are you denied basic needs s uch as food, clothing, or medical care? No 03/31/2023 In the past 12 months have y ou been in a relationship with a person who hurts, threatens, or tries to control you? No 03/31/2023 Sex and Gender Information Value Date Recorded Sex Assigned at Male 02/07/2018 11:26 AM EDT Legal Sex Male 9:02 PM EDT Gender Identity Male 02/07/2018 11:26 AM EDT Sexual Orientation Straight 03/31/2019 3: 32 PM EDT documented as of this encounter Plan of Treatment Not on file documented as of this encounter Visit Diagnoses Not on filedocumented in this encounter Care Teams Chemists Relationship Specialty Start Date End Date Kash Pacheco MD [address] [place] [address] [place] [address] PCP - General Internal Medicine 01/20/22 documented as of this encounter Additional Source Comments The information contained in this document represents components of the legal health record. It is not the complete legal health record.[facility]
== END 2025-01-01 11:37 | disposition home or self-care (01) ==
LOC: HO.LAB 11:36
PROVIDERS: PCP Internal Medicine; Visit Provider Internal Medicine
DX: Z00.00 Encounter for general adult medical examination without abnormal findings (principal); E78.00 Pure hypercholesterolemia, unspecified; E55.9 Vitamin D deficiency, unspecified; D64.9 Anemia, unspecified; R30.0 Dysuria
CPT/HCPCS: 36415; 80053; 80061; 81003; 82306; 84443; 85025

== ENCOUNTER 2025-01-03 08:30 | Outpatient (AMB) | payer OTHER, SELFPAY ==
--- NOTE | 2025-01-03 08:38 | A.OFFPC_ITS ---
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 Accompanied by: Self / Same As Patient Allergies amoxicillin Adverse Reaction (Unknown, Verified 01/03/25 08:54) rash Medication List - Last Reconciled 01/03/25 by SARAHI Sorensen lorazepam 0.5 mg PO BEDTIME PRN 30 days nicotine 1 patch transdermal Q24H 28 days nicotine 1 patch transdermal DAILY 7 days nicotine 1 patch transdermal DAILY 7 days Tobacco use date assessed: 01/03/25 Dental Screening Dental Screen Date: 01/03/25 Did you have a dental visit in the last 12 months?: Yes Did you have a dental problem in the last 6 months where you did not have access to dental care?: No Was dental information given to patient?: Patient has dentist HPI ANNUAL PE HPI Details Presenting for annual physical evaluation Dentist: up to date Eye: over ten years Snellen: Right: Left: Corrected vision: reading glasses when he was young STI screening: Colonoscopy: Pap Smer: PHQ-9: Flu:does not take COVID:has not taken this vaccine Tdap: 2019 in the hospital due to cut on right hand Diet:regular, trying to cut sweats out Exercise:minimally The patient is a 34-year-old male presenting for a wellness visit and management of chronic conditions. The patient reports a history of vitamin D deficiency due to insufficient sunlight exposure, particularly during winter months. He has not been taking vitamin D supplements recently but acknowledges improvement in levels compared to previous assessments. The patient has been informed of elevated cholesterol levels and advised to avoid foods high in cholesterol, such as fatty foods, junk food, and egg yolks. He admits to a diet high in butter and plans to switch to olive oil to manage cholesterol levels. The patient is slightly anemic, which may be related to a vitamin deficiency. He has been advised to incorporate additional vitamins into his diet for future lab assessments. The patient has a history of nicotine dependence and is currently smoking. He expresses a desire to quit smoking and is considering using nicotine patches again. The patient reports a recent episode of otitis media, initially treated with oral antibiotics and currently managed with ear drops. He has been prescribed doxycycline for a more comprehensive treatment. The patient reports concerns of his fasting glucose also being slightly elevated patient was concerned about his fasting glucose always has been slightly elevated [facility] Medical History Vitamin D deficiency Pure hypercholesterolemia Depression ETOH abuse Smoker Anxiety Generalized anxiety disorder Surgical History No significant past surgical history Family History Mother Esophageal cancer Father No problems noted. Other Substance abuse Social History Housing: House Alcohol intake: former Patient Tobacco Use Status: Current everyday Tobacco user Tobacco use type: Cigarette Cigarette Packs Per Day: 1 e-Cigarette/Vaping Use: Never Used Second Hand Smoke Exposure: Yes service: No Current occupational status: employed Cognitive needs: No Hearing needs: No Vision needs: No Questionnaire PHQ-9 Over the last 2 weeks, how often have you been bothered by any of the following problems? 1. Little interest or pleasure in doing things: not at all 2. Feeling down, depressed, or hopeless: several days 3. Trouble falling or staying asleep, or sleeping too much: several days 4. Feeling tired or having little energy: several days 5. Poor appetite or overeating: not at all 6. Feeling bad about yourself - or that you are a failure or have let yourself or your family down: not at all 7. Trouble concentrating on things, such as reading the newspaper or watching television: not at all 8. Moving or speaking so slowly that other people could have noticed. Or the opposite - being so fidgety or restless that you have been moving around a lot more than usual: not at all 9. Thoughts that you would be better off or of hurting yourself in some way: not at all Total score: 3 Depression Screening Interpretation: Negative Depression Screening Done: Yes 93811 - PHQ-9 Billing: Yes Source: Developed by Drs. Christian Bernal, Romelia B.W. Bharath Donahue and colleagues, with an educational to from [employer]. Thrive Questionnaire Date Thrive assessed: 01/03/25 I am a: Patient What is your living situation today?: I have a steady place to live Within the past 12 months, did the food you bought not last and you didn't have the money to get more?: Never true Within the past 12 months, did you worry whether your food would run out before you got money to buy more?: Never true Do you have trouble paying for medicines?: Yes Do you have trouble getting transportation to medical appointments?: No Do you have trouble paying your heating and electricity bill?: No Do you have trouble taking care of your child, family member or friend?: No Do you have trouble with day-to-day activities such as bathing, preparing meals, shopping, managing finances, etc.?: No Are you currently unemployed and looking for a job?: I choose not to answer this question Are you interested in more education?: No Please select the resources that you would like help with: None Currently or been in a relationship where the following occur: No concerns reported THRIVE Score: 0 AUDIT C Alcohol Use Questionnaire (AUDIT-C) 1. How often do you have a drink containing alcohol?: Never 3. How often do you have six or more drinks on one occasion?: Never Total Score: 0 KAL-7 AMB Questionnaire KAL-7 Date KAL - 7 assessed: 01/03/25 Feeling nervous, anxious, or on edge: 1 = Several days Not being able to stop or control worryin = Several days Worrying too much about different things: 1 = Several days Trouble relaxin = Several days Being so restless that it is hard to sit still: 1 = Several days Becoming easily annoyed or irritable: 0 = Not at all Feeling afraid as if something awful might happen: 1 = Several days Total KAL-7 score (0-4 normal; 5-9 mild; 10-14 moderate; 15-21 severe): 6 Source: Developed by Drs. Christian Bernal, Bharath Vieyra and colleagues, with an educational to from [employer]. KAL-7 Assessment Billing KAL-7 Assessment Tool: KAL-7 Assessment 95744 Review of Systems Const Denies headache(s) Eyes Denies loss of vision ENT Denies vertigo, Denies dizziness, Reports otalgia (left ear), Denies headache(s) and Denies sore throat Card Denies chest pain, Denies leg edema and Denies lightheadedness Resp Denies cough, Denies hemoptysis and Denies wheezing GI Denies abdominal pain, Denies melena, Denies constipation, Denies diarrhea and Denies vomiting Denies dysuria, Denies urinary frequency and Denies urinary urgency Musc Denies arthralgias, Denies joint swelling, Denies numbness and Denies tingling Neuro Denies Abnormal speech present, Denies behavioral changes, Denies vertigo, Denies dizziness, Denies headache(s), Denies loss of vision, Denies memory loss, Denies numbness and Denies tingling Psych Reports anxiety, Denies behavioral changes, Denies depression, Denies memory loss and Denies panic attacks Kishor/Lymph Denies easy bleeding and Denies easy bruising Aller/Immun Denies wheezing Physical exam (Primary Care) Vital Signs: Last Vital Signs Temp 96.6 F L 01/03/25 08:43 Pulse 88 01/03/25 08:43 Resp 18 01/03/25 08:43 BP 112/70 01/03/25 08:43 Pulse Ox 97 01/03/25 08:43 Oxygen Delivery Method Room Air 01/03/25 08:43 BMI result Body Mass Index 24.6 Tobacco/Smoking Status: Tobacco use Status Tobacco use date assessed 01/03/25 01/03/25 08:50 Patient Tobacco Use Status Current everyday Tobacco 01/03/25 08:41 Tobacco use type Cigarette 01/03/25 08:41 e-Cigarette/Vaping Use Never Used 01/03/25 08:41 PHQ-9: PHQ-9 Score PHQ-9: Total score 3 01/03/25 09:03 Depression Screening Interpretation: Negative Thrive Assessment: Date of Thrive Assessment Date Thrive assessed 01/03/25 01/03/25 08:50 Currently or been in a relationship where the following occur: No concerns reported Const General: healthy appearing, no acute distress, alert and awake Nutritional Appearance: well nourished Orientation/consciousness: oriented to person, oriented to place and oriented to time HENMT Ears: TM normal on the right and TM abnormal bulging on the left, erythematous on the left and with loss of landmarks on the left General nose exam: Normal nasal mucous membranes and turbinates present Eyes Conjunctivae: conjunctivae normal Sclerae: sclerae normal Pupils: Equal, round and reactive pupils present Neck Neck: Yes no lymphadenopathy and Yes no JVD Thyroid: Thyroid normal Carotids: no bruits Resp Effort & Inspection: normal respiratory effort and not tachypneic Auscultation: no crackles, no rales, no rhonchi and no wheezes Cardio Rate: regular rate Rhythm: regular rhythm Heart sounds: no murmurs and normal S1 and S2 GI Palpation (GI): Soft to palpation, nontender, no hepatomegaly and no splenomegaly Auscultation: normal bowel sounds Skin General skin exam: no rashes or lesions noted and dry skin Neuro General: oriented to person, oriented to place and oriented to time Cranial nerves: Yes CN's II-XII intact bilaterally and Yes Equal, round and reactive pupils present Speech: No Abnormal speech present Gait exam (Neuro): Normal gait present Motor exam (neuro): 5/5 motor strength present throughout and no tremor noted Deep tendon reflexes (DTR's): Right triceps reflex intensity grade: 2+, Left triceps reflex intensity grade: 2+, Rt Biceps (C5, C6): 2+, Left biceps reflex intensity grade: 2+, Right brachioradialis reflex intensity grade: 2+, Left brachioradialis reflex intensity grade: 2+, Right patellar reflex intensity grade: 2+, Left patellar reflex intensity grade: 2+, Right ankle reflex intensity grade: 2+ and Left ankle reflex intensity grade: 2+ Extrem Right upper extremity: full ROM Left upper extremity: full ROM Right lower extremity: full ROM; no edema Left lower extremity: full ROM; no edema Psych Mental Status: mental status grossly normal Speech and movement: Normal speech and movement present Affect: normal affect Attitude: cooperative Thought process: Normal thought process present Results Reviewed Results Reviewed: Laboratory Tests 01/01/25 01/01/25 11:50 11:51 WBC 10.5 RBC 4.35 L Hgb 13.8 L Hct 39.3 L MCV 90.3 MCH 31.7 MCHC 35.1 RDW 11.9 Plt Count 241 MPV 9.7 Immature Gran % (Auto) 0.4 Neut % (Auto) 66.7 Lymph % (Auto) 23.8 Sodium 141 Potassium 4.1 Chloride 108 Carbon Dioxide 26 Anion Gap 11 L BUN 11 Creatinine 1.00 Estimated GFR > 60 Fasting Glucose 103 H Calcium 8.9 Total Bilirubin 0.2 AST 31 ALT 37 Alkaline Phosphatase 60 Total Protein 7.0 Albumin 4.4 Triglycerides 79 Cholesterol 181 LDL Cholesterol, Calc 132 H HDL Cholesterol 34 L 25-OH Vitamin D Total 26.0 L TSH 0.91 Urine Color Yellow Urine Appearance Clear Urine pH 6.5 Ur Specific [place] 1.025 Urine Protein Negative Urine Glucose (UA) Negative Urine Ketones Negative Urine Blood Negative Urine Nitrite Negative Ur Leukocyte Esterase Negative Coding Level of Care Code Est Pt Prev Care 18-39y([id number]) Diagnoses Annual physical exam Z00.00 Smoker F17.200 Vitamin D deficiency E55.9 Pure hypercholesterolemia E78.00 ETOH abuse F10.10 Episode of recurrent major depressive disorder, unspecified depression episode severity F33.9 Active/Remission status: currently active Depression Type: major depressive disorder Major depression episode severity: unspecified Major depression recurrence: recurrent Anxiety F41.9 Left otitis media, unspecified otitis media type H66.92 Otitis media type: unspecified Laterality: left Additional Codes KAL-7 Assessment Billing - KAL-7 Assessment Tool: KAL-7 Assessment 87831 ([id number]) PHQ-9 - 97074 - PHQ-9 Billing: Yes ([id number]) Time Spent (min) 38 Assessment & Plan Assessment & Plan (1) Annual physical exam: Code(s): Z00.00 - Encounter for general adult medical examination without abnormal findings Category: Medical Plan: Preventative guidelines and recent labs reviewed with the patient (2) Smoker: Code(s): F17.200 - Nicotine dependence, unspecified, uncomplicated Category: Social Hx Plan: Patient reports that he is smoking again almost a pack and would like to try to quit Nicotine patches ordered (3) Vitamin D deficiency: Code(s): E55.9 - Vitamin D deficiency, unspecified Category: Medical Plan: Vitamin-D level 26, increased from 17 Continue cholecalciferol 50 mcg daily (4) Pure hypercholesterolemia: Code(s): E78.00 - Pure hypercholesterolemia, unspecified Category: Medical Plan: Cautioned the patient that his LDL increased from 116-132 Discussed lifestyle modifications including dietary changes and physical activity (5) ETOH abuse: Code(s): F10.10 - Alcohol abuse, uncomplicated Category: Social Hx Plan: encouraged continuing sobriety (6) Depression: Code(s): F32.A - Depression, unspecified Category: Medical Qualifiers: Active/Remission status: currently active Depression Type: major depressive disorder Major depression episode severity: unspecified Major depression recurrence: recurrent Qualified Code(s): F33.9 - Major depressive disorder, recurrent, unspecified Plan: Follow up with therapist/counselor as scheduled He was previously prescribed Bupropion XL 150 mg QD but admits that he never started taking the Rx and feels that he is doing much better now and does not need to go on Rx at this time (7) Anxiety: Code(s): F41.9 - Anxiety disorder, unspecified Category: Medical Plan: Continue Lorazepam 0.5 mg QD PRN -RX refilled He was also started on Bupropion XL 150 mg QD last year but he admits that he never started taking the medication and prefers not to start on it unless absolutely necessary Follow up with mental health therapist regularly as scheduled (8) Otitis media: Code(s): H66.90 - Otitis media, unspecified, unspecified ear Category: Medical Qualifiers: Otitis media type: unspecified Laterality: left Qualified Code(s): H66.92 - Otitis media, unspecified, left ear Plan: Patient is currently taking ofloxacin ear drops. Doxycycline 100 mg b.i.d. times 10 days ordered. Contact the office his symptoms worsen or persist Orders: Orders Vitamin D 25-OH Total 1 Year E55.9 - Vitamin D deficiency, unspecified, E78.00 - Pure hypercholesterolemia, unspecified, F10.10 - Alcohol abuse, uncomplicated, F17.200 - Nicotine dependence, unspecified, uncomplicated, F33.9 - Major d epressive disorder, recurrent, unspecified, F41.9 - Anxiety disorder, unspecified, Z00.00 - Encounter for general adult medical examination without abnormal findings UA CC w/rflx Micro + Cult 1 Year E55.9 - Vitamin D deficiency, unspecified, E78.00 - Pure hypercholesterolemia, unspecified, F10.10 - Alcohol abuse, uncomplicated, F17.200 - Nicotine dependence, unspecified, uncomplicated, F33.9 - Major depressive disorder, recurrent, unspecified, F41.9 - Anxiety disorder, unspecified, Z00.00 - Encounter for general adult medical examination without abnormal findings TSH reflex Free T4 1 Year E55.9 - Vitamin D deficiency, unspecified, E78.00 - Pure hypercholesterolemia, unspecified, F10.10 - Alcohol abuse, uncomplicated, F17.200 - Nicotine dependence, unspecified, uncomplicated, F33.9 - Major depressive disorder, recurrent, unspecified, F41.9 - Anxiety disorder, unspecified, Z00.00 - Encounter for general adult medical examination without abnormal findings Comprehensive [place]. Panel Fast 1 Year E55.9 - Vitamin D deficiency, unspecified, E78.00 - Pure hypercholesterolemia, unspecified, F10.10 - Alcohol abuse, uncomplicated, F17.200 - Nicotine dependence, unspecified, uncomplicated, F33.9 - Major depressive disorder, recurrent, unspecified, F41.9 - Anxiety disorder, unspecified, Z00.00 - Encounter for general adult medical examination without abnormal findings Hemoglobin A1c 1 Year E55.9 - Vitamin D deficiency, unspecified, E78.00 - Pure hypercholesterolemia, unspecified, F10.10 - Alcohol abuse, uncomplicated, F17.200 - Nicotine dependence, unspecified, uncomplicated, F33.9 - Major depressive disorder, recurrent, unspecified, F41.9 - Anxiety disorder, unspecified, Z00.00 - Encounter for general adult medical examination without abnormal findings Vitamin B12 and Folate 1 Year E55.9 - Vitamin D deficiency, unspecified, E78.00 - Pure hypercholesterolemia, unspecified, F10.10 - Alcohol abuse, uncomplicated, F17.200 - Nicotine dependence, unspecified, uncomplicated, F33.9 - Major depressive disorder, recurrent, unspecified, F41.9 - Anxiety disorder, unspecified, Z00.00 - Encounter for general adult medical examination without abnormal findings IRON PROFILE 1 Year E55.9 - Vitamin D deficiency, unspecified, E78.00 - Pure hypercholesterolemia, unspecified, F10.10 - Alcohol abuse, uncomplicated, F17.200 - Nicotine dependence, unspecified, uncomplicated, F33.9 - Major depressive disorder, recurrent, unspecified, F41.9 - Anxiety disorder, unspecified, Z00.00 - Encounter for general adult medical examination without abnormal findings Complete Blood Count Auto Diff 1 Year E55.9 - Vitamin D deficiency, unspecified, E78.00 - Pure hypercholesterolemia, unspecified, F10.10 - Alcohol abuse, uncomplicated, F17.200 - Nicotine dependence, unspecified, uncomplicated, F33.9 - Major depressive disorder, recurrent, unspecified, F41.9 - Anxiety disorder, unspecified, Z00.00 - Encounter for general adult medical examination without abnormal findings Lipid Panel 1 Year E55.9 - Vitamin D deficiency, unspecified, E78.00 - Pure hypercholesterolemia, unspecified, F10.10 - Alcohol abuse, uncomplicated, F17.200 - Nicotine dependence, unspecified, uncomplicated, F33.9 - Major depressive disorder, recurrent, unspecified, F41.9 - Anxiety disorder, unspecified, Z00.00 - Encounter for general adult medical examination without abnormal findings Medications: New doxycycline monohydrate 100 mg PO BID 20 caps 0RF 10 days Refilled nicotine 1 patch transdermal Q24H 28 ea 3RF 28 days F17.200 - Nicotine dependence, unspecified, uncomplicated nicotine 1 patch transdermal DAILY 7 ea 0RF 7 days F17.200 - Nicotine dependence, unspecified, uncomplicated nicotine 1 patch transdermal DAILY 7 ea 0RF 7 days F17.200 - Nicotine dependence, unspecified, uncomplicated lorazepam 0.5 mg PO BEDTIME PRN 15 tabs 0RF anxiety 30 days F41.9 - Anxiety disorder, unspecified
[2025-01-03 08:43] VITALS: BP 112/70; PULSE 88; RESP 18; TEMP 35.9; O2SAT 97; BMI 24.6
--- OUTSIDE RECORDS SUMMARY | 2025-01-03 08:43 | XMS_ITS | Clinical Summary ---
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 Active LORazepam (ATIVAN) 1 MG tablet Take 1 mg by mouth every 6 (six) hours as needed for anxiety. Active cetirizine (ZYRTEC) 10 MG tablet Take 1 tablet (10 mg total) by mouth daily as needed for allergies. 30 tablet 9 Active neomycin-polymy ronal B-hydrocortison e (CORTOMYCIN) 3.5-10,000-1 mg/mL-unit/mL-% otic suspension 4 drops by Each Ear route 4 (four) times a day. 10 mL 1 2 Active Additional Information Patient not taking.Reported on 12/22/2024 ciprofloxacin-h ydrocortisone (CIPRO HC) otic suspension 3 drops by Each Ear route 2 (two) times a day. 10 mL 5 Active cefdinir (OMNICEF) 300 MG capsule Take 1 capsule (300 mg total) by mouth 2 (two) times a day for 7 days. Take w food, yogurt, probiotics. Finish all.ok with pcn allergy. 14 capsule 5 12/22/19 25 Additional Information Patient not taking.Reported on 12/22/2024 ciprofloxacin-d exAMETHasone (CIPRODEX) otic suspension Place 4 drops into the right ear 2 (two) times a day for 7 days. 7.5 mL 12/30/19 Active Problems No known active problems Encounters Date Type Department Care Team Description 12/27/2024 Orders Only [facility] at [address] [address] Emelia Mosher, OMAR 12/22/2024 11:10 AM EDT Office Visit [facility] at [address] [address] Chetna Jennings, ROSANGELA Acute otitis externa of right ear, unspecified type (Primary Dx) 12/14/2024 6:10 PM EDT Office Visit [facility] at [address] [address] Kamini Angel, REGULATOR INSPECTOR Impacted cerumen of right ear (Primary Dx); Right otitis media, unspecified otitis media type from Last 3 Months Social History Tobacco Use Types Packs/Day Years Used Date Smoking Tobacco: Every Day Cigarettes Smokeless Tobacco: Never Tobacco Cessation:Ready to Q uit: Not Asked; Counseling Given: Not Answered Alcohol Use Standard Drinks/Week Comments Yes 21 [...] Orientation Straight 03/31/2019 3: 32 PM EDT Last Filed Vital Signs Vital Sign Reading Time Taken Comments Blood Pressure 121/82 12/22/2024 11:50 AM EDT Pulse 86 12/22/2024 11:50 AM EDT Temperature 37 C (98.6 F) 12/22/2024 11:50 AM EDT Respiratory Rate 17 12/22/2024 11:50 AM EDT Oxygen Saturation 100% 12/22/2024 11:50 AM EDT Inhaled Oxygen Concentration - - Weight 73 kg (161 lb) 01/06/2024 11:19 AM EDT Height 180.3 cm (5' 11 ) 03/31/2023 10:11 PM EDT Body Mass Index 22.45 03/31/2023 10:11 PM EDT Plan of Treatment Health Maintenance Due Date Last Done Comments Adult Td,Tdap Booster 1990 DEPRESSION SCREENING 2002 SMOKING Hx and SMOKELESS TOB ACCO SCREENING 2003 HEPATITIS C SCREENING 2008 HIV ONE-TIME SCREENING (18-6 5 YEARS) 2008 PNEUMOCOCCAL VACCINES (0-49 years) (1 of 2 - PCV) 2009 COVID-19 VACCINE (2023-2 5 season) 2024 HEPATITIS A VACCINES Aged Out No long er eligible based on patient's age to complete this topic HIB VACCINES Aged Out No longer eligi ble based on patient's age to complete this topic MENINGOCOCCAL VACCINES (ACWY) Aged Out No longer eligible based on patient's age to complete this topic MENINGOCOCCAL VACCINES (B) Aged Out N o longer eligible based on patient's age to complete this topic Medical Devices Not on file Procedures Procedure Name Priority Date/Time Associated Diagnosis Comments EAR CERUMEN REMOVAL Routine 12/14/2024 7 :50 PM EDT Impacted cerumen of right ear from Last 3 Months Results * EAR CERUMEN REMOVAL (12/14/2024 7:50 PM EDT) Other Narrative Kamini Angel FNP - 12/14/2024 7:50 PM EDT Kamini Angel FNP 12/14/2024 7:52 PM Cerumen Removal Date/Time: 12/14/2024 7:50 PM Visualization: Otoscopy Cerumen in: Right ear Removed with: Irrigation Patient tolerated procedure well: Yes Comments: Right tm erythematous after irrigation [place] Protocol: Verbal consent obtained: Yes Written consent obtained: No Time out: Immediately prior to the procedure, a time out was called to verify that there is a signed consent form and that the correct patient, planned procedure, site and side are consistent with documentation and that necessary equipment and/or blood products are available prior to the start of the case. Kamini COOLEY PROCEDURE/MINOR SURGICAL OR DERABLES Final Result from Last 3 Months Insurance [facility] [place] [address] [place] [address] [place] [address] [place] [address] [facility] [employer] [place] [id number] Care Teams Breaker Mechanic Relationship Specialty Start Date End Date Kash Pacheco MD [address] [place] [address] [place] [address] PCP - General Internal Medicine 01/20/22 Additional Source Comments The information contained in this document represents components of the legal health record. It is not the complete legal health record.[facility]
== END 2025-01-03 09:22 | disposition home or self-care (01) ==
LOC: HO.HMCH 08:31
PROVIDERS: PCP Internal Medicine
DX: Z00.00 Encounter for general adult medical examination without abnormal findings (principal); F17.200 Nicotine dependence, unspecified, uncomplicated; E55.9 Vitamin D deficiency, unspecified; E78.00 Pure hypercholesterolemia, unspecified; F10.10 Alcohol abuse, uncomplicated; F33.9 Major depressive disorder, recurrent, unspecified; F41.9 Anxiety disorder, unspecified; H66.92 Otitis media, unspecified, left ear

== ENCOUNTER → 2025-01-03 08:30 | Outpatient (BNVA) | payer OTHER, SELFPAY | PROVIDERS: PCP Internal Medicine | DX: Z00.00 Encounter for general adult medical examination without abnormal findings (principal); E55.9 Vitamin D deficiency, unspecified; D64.9 Anemia, unspecified; E78.00 Pure hypercholesterolemia, unspecified; F10.10 Alcohol abuse, uncomplicated; F33.9 Major depressive disorder, recurrent, unspecified; F41.9 Anxiety disorder, unspecified; H66.92 Otitis media, unspecified, left ear; F17.210 Nicotine dependence, cigarettes, uncomplicated | CPT/HCPCS: 96127; 99395 ==

== ENCOUNTER 2025-04-02 15:20 | Outpatient (AMB) | payer OTHER, SELFPAY ==
[2025-04-02 15:22] VITALS: BP 116/60; PULSE 92; RESP 18; TEMP 36.6; O2SAT 99; BMI 24.0
--- NOTE | 2025-04-02 15:22 | A.OFFPC_ITS ---
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 Required: No Accompanied by: Self / Same As Patient Allergies amoxicillin Adverse Reaction (Unknown, Verified 04/02/25 15:31) rash Medication List - Last Reconciled 04/02/25 by SARAHI Sorensen lorazepam 0.5 mg PO BEDTIME PRN 30 days nicotine 1 patch transdermal Q24H 28 days nicotine 1 patch transdermal DAILY 7 days nicotine 1 patch transdermal DAILY 7 days Tobacco use date assessed: 04/02/25 Dental Screening Dental Screen Date: 04/02/25 Did you have a dental visit in the last 12 months?: Yes Did you have a dental problem in the last 6 months where you did not have access to dental care?: No Was dental information given to patient?: Patient has dentist HPI Gypsy Marcus kidney stones HPI Details The patient is a 34-year-old male presenting for post hospital ED follow-up on a kidney stone, requesting an alternative medication, and seeking a referral for an adrenal nodule. He was recently seen in the emergency room for a 4 mm kidney stone and was prescribed Flomax. He has a history of difficulty swallowing pills since childhood and is unable to take the Flomax capsule. The patient reports his pain is minimal, and he has not required ibuprofen for over a week. He has had follow-up appointments with a urologist, including one this morning where an ultrasound showed no kidney swelling, per patient. His urologist was unwilling to prescribe an alternative to Flomax. Incidental findings from his ER visit include a left adrenal nodule consistent with an adenoma and a small hiatal hernia. He was advised to see an natural sciences manager for the adrenal nodule. The patient reports quitting alcohol, is in the process of quitting smoking, takes vitamins, and has reduced his sugar intake. [facility] Medical History Vitamin D deficiency Pure hypercholesterolemia Depression ETOH abuse Smoker Anxiety Generalized anxiety disorder Surgical History No significant past surgical history Family History Mother Esophageal cancer Father No problems noted. Other Substance abuse Social History Housing: House Alcohol intake: former Patient Tobacco Use Status: Current everyday Tobacco user Tobacco use type: Cigarette Cigarette Packs Per Day: 1 e-Cigarette/Vaping Use: Never Used Second Hand Smoke Exposure: Yes service: No Current occupational status: employed Cognitive needs: No Hearing needs: No Vision needs: No Questionnaire Thrive Questionnaire Date Thrive assessed: 12/27/24 I am a: Patient What is your living situation today?: I have a steady place to live Within the past 12 months, did the food you bought not last and you didn't have the money to get more?: Never true Within the past 12 months, did you worry whether your food would run out before you got money to buy more?: Never true Do you have trouble paying for medicines?: Yes Do you have trouble getting transportation to medical appointments?: No Do you have trouble paying your heating and electricity bill?: No Do you have trouble taking care of your child, family member or friend?: No Do you have trouble with day-to-day activities such as bathing, preparing meals, shopping, managing finances, etc.?: No Are you currently unemployed and looking for a job?: I choose not to answer this question Are you interested in more education?: No Please select the resources that you would like help with: None Currently or been in a relationship where the following occur: No concerns reported THRIVE Score: 0 KAL-7 AMB Questionnaire KAL-7 Date KAL - 7 assessed: 01/03/25 Source: Developed by Drs. Christian Bernal, Romelia Donahue, Bharath Strange and colleagues, with an educational to from [employer]. Review of Systems Const Denies body aches, Denies chills, Denies fever(s), Denies headache(s) and Denies poor appetite Eyes Reports no additional complaints ENT Denies dysphagia, Denies dizziness, Denies headache(s) and Denies odynophagia Card Denies chest pain, Denies syncope, Denies edema, Denies irregular heart rhythm, Denies lightheadedness and Denies dyspnea Resp Denies cough and Denies dyspnea GI Denies abdominal pain, Denies constipation, Denies dysphagia, Denies diarrhea, Denies nausea, Denies odynophagia and Denies vomiting Reports other (mild penile discomfort) Musc Reports no additional complaints and Denies abnormal gait Skin/Breast Reports system reviewed and no additional complaints, except as documented Neuro Denies abnormal gait, Denies dizziness, Denies syncope and Denies headache(s) Psych Reports no additional complaints Physical exam (Primary Care) Vital Signs: Last Vital Signs Temp 98 F 04/02/25 15:22 Pulse 92 04/02/25 15:22 Resp 18 04/02/25 15:22 BP 116/60 04/02/25 15:22 Pulse Ox 99 04/02/25 15:22 Oxygen Delivery Method Room Air 04/02/25 15:22 BMI result Body Mass Index 24.0 Tobacco/Smoking Status: Tobacco use Status Tobacco use date assessed 04/02/25 04/02/25 15:27 Patient Tobacco Use Status Current everyday Tobacco 04/02/25 15:27 Tobacco use type Cigarette 04/02/25 15:27 e-Cigarette/Vaping Use Never Used 04/02/25 15:27 Thrive Assessment: Date of Thrive Assessment Date Thrive assessed 12/27/24 04/02/25 15:27 Currently or been in a relationship where the following occur: No concerns reported Const General: cooperative, healthy appearing, comfortable and no acute distress Orientation/consciousness: patient oriented x3 HENMT Head: Yes normocephalic Ears: hearing grossly normal bilaterally General nose exam: Normal external nose present Eyes General: appearance normal, both eyes and all related structures Conjunctivae: conjunctivae normal Neck Neck: Yes full ROM and Yes no lymphadenopathy Resp Effort & Inspection: normal respiratory effort Auscultation: clear to auscultation bilaterally, no crackles, no rales, no rhonchi and no wheezes Cardio Rate: regular rate Rhythm: regular rhythm General: Yes no CVA tenderness Back/Spine/Pelvis Back: no CVA tenderness Skin General skin exam: no rashes or lesions noted Neuro General: patient oriented x3 Gait exam (Neuro): Normal gait present Extrem General: Yes normal to inspection, Yes full ROM and No edema Psych Affect: normal affect Attitude: cooperative Insight: Good insight present (Psych) Judgement: Good judgement present (Psych) Coding Level of Care Code Est Pt Level 3 (48625) Diagnoses Kidney stone on left side N20.0 Adrenal nodule E27.8 Time Spent (min) 31 Assessment & Plan Assessment & Plan (1) Kidney stone on left side: Code(s): N20.0 - Calculus of kidney Category: Medical Plan: Patient was evaluated at [facility] and was found to have a left kidney stone 4 mm. It was started on Flomax to aid with passing the stone and was referred to Urology. Patient was seen by Urology it is morning to discuss options of procedural removal of the stone if unable to pass. Patient to have an issue with swallowing pills and is requesting to switch Flomax to a smaller pill. Alfuzosin ER 10 mg ordered daily. Follow up with Urology as scheduled (2) Adrenal nodule: Code(s): E27.8 - Other specified disorders of adrenal gland Category: Medical Plan: Incidental find of adrenal nodule. The patient we will be referred to Endocrinology for further evaluation. Orders: Referrals Endocrinology Referral E27.8 - Other specified disorders of adrenal gland Medications: New alfuzosin ER administer after the same meal each day 10 mg PO DAILY 30 tabs 1RF
--- OUTSIDE RECORDS SUMMARY | 2025-04-02 18:36 | XMS_ITS | Clinical Summary ---
Author Organization [facility] Address [address] [place] [address] Phone Care Team Providers Care Lab Analyst Name Role Phone Kash Pacheco MD Primary Care Provider [phone] [phone] Allergies Active Allergy Reactions Criticality Noted Date [...] daily as needed for allergies. 30 tablet 10/26/19 19 Active neomycin-polymyxin B-hydrocortisone (CORTOMYCIN) 3.5-10,000-1 mg/mL-unit/mL-% otic suspension 4 drops by Each Ear route 4 (four) times a day. 10 mL 1 03/10/20 22 Active Additional Information Patient not taking.Reported on 12/22/2024 ciprofloxacin-hydr ocortisone (CIPRO HC) otic suspension 3 drops by Each Ear route 2 (two) times a day. 10 mL 12/28/19 25 Active oxyCODONE 5 MG immediate release tablet Take 1 tablet (5 mg total) by mouth every 6 (six) hours as needed for pain (specific location in comments). Partial fill ok 16 tablet 03/06/20 25 Active ondansetron (ZOFRAN-ODT) 4 MG disintegrating tablet Take 1 tablet (4 mg total) by mouth every 8 (eight) hours as needed for nausea. 12 tablet 03/06/20 25 Active tamsulosin (FLOMAX) 0.4 mg Cap Take 1 capsule (0.4 mg total) by mouth daily. 7 capsule 03/06/20 25 Active Active Problems No known active problems Encounters Date Type Department Care Team Description 03/06/2025 11:40 AM EDT Ancillary Procedure [facility], Ultrasound - [facility] [address] [place] [address] Greta Soto PA-C 03/06/2025 11:06 AM EDT - 03/06/2025 3:19 PM EDT Emergency [facility] [address] [place] [address] Discharge Disposition: Home or Self Care 03/06/2025 Procedure Pass [facility], Ct Scan - [address] [address] from Last 3 Months Social History Tobacco [...] as food, clothing, or medical care? No 03/06/2025 In the past 12 months have y ou been in a relationship with a person who hurts, threatens, or tries to control you? No 03/06/2025 Are you denied basic needs s uch as food, clothing, or medical care? No 03/06/2025 In the past 12 months have y ou been in a relationship with a person who hurts, threatens, or tries to control you? No 03/06/2025 Sex and Gender Information Value Date Recorded Sex Assigned at Male 02/07/2018 11:26 AM EDT Legal Sex Male 9:02 PM EDT Gender Identity Male 02/07/2018 11:26 AM EDT Sexual Orientation Straight 03/31/2019 3: 32 PM EDT Last Filed Vital Signs Vital Sign Reading Time Taken Comments Blood Pressure 137/81 03/06/2025 3:18 PM EDT Pulse 76 03/06/2025 3:18 PM EDT Temperature 36.6 C (97.9 F) 03/06/2025 3:18 PM EDT Respiratory Rate 16 03/06/2025 3:18 PM EDT Oxygen Saturation 100% 03/06/2025 3:18 PM EDT Inhaled Oxygen Concentration - - Weight 74.8 kg (165 lb) 03/06/2025 11:03 AM EDT Height 180.3 cm (5' 11 ) 03/06/2025 11:03 AM EDT Body Mass Index 23.01 03/06/2025 11:03 AM EDT Plan of Treatment Health Maintenance Due Date Last Done Comments Adult Td,Tdap Booster 1990 DEPRESSION SCREENING 2002 SMOKING Hx and SMOKELESS TOB ACCO SCREENING 2003 HEPATITIS C SCREENING 2008 HIV ONE-TIME SCREENING (18-6 5 YEARS) 2008 PNEUMOCOCCAL VACCINES (0-49 years) (1 of 2 - PCV) 2009 INFLUENZA VACCINE (#1) 2025 COVID-19 VACCINE ( - 2024-2 6 season) 2025 HEPATITIS A VACCINES Aged Out No long [...] Procedure Name Priority Date/Time Associated Diagnosis Comments CT ABDOMEN/PELVIS (KIDNEY STONE) WITHOUT CONTRAST Routine 03/06/2025 1:29 PM EDT URINE SEDIMENT STAT 03/06/2025 1:03 PM EDT URINALYSIS W/REFLEX URINE CULTURE STAT 03/06/2025 1:03 PM EDT URINE CULTURE Routine 03/06/2025 1:03 PM EDT LIPASE STAT 03/06/2025 11:43 AM EDT LFTS (HEPATIC PANEL) STAT 03/06/2025 11:43 AM EDT BASIC METABOLIC PANEL STAT 03/06/2025 11:43 AM EDT CBC AND DIFFERENTIAL STAT 03/06/2025 11:43 AM EDT US BEDSIDE Routine 03/06/2025 11:35 AM EDT from Last 3 Months Results * CT ABDOMEN/PELVIS (KIDNEY STONE) WITHOUT CONTRAST (03/06/2025 1:29 PM EDT) MGB IMG PACKING AND FINAL ASSEMBLY SUPERVISOR COMMENT 4mm obstructing L prox ureter stone with trace hydro [facility] Anatomical Region Laterality Modality Abdomen, Pelvis Computed Tomogra phy 03/06/2025 2:08 PM EDT Impressions 03/06/2025 2:33 PM EDT 1. 4 mm obstructing stone within the proximal left ureter resulting in trace hydronephrosis. 2. Additional 3 mm nonobstructing stone in the right lower pole. 3. 0.8 cm left adrenal nodule consistent with an adenoma. A clinically significant result was initiated on 03/06/2025 2:19 PM, Message ID [id number]. ATTESTATION: I, Christian Pritchard as teaching physician, have reviewed the images for this case and if necessary edited the report originally created by Mo Linder. Narrative 03/06/2025 2:[address] ABDOMEN/PELVIS (KIDNEY STONE) WITHOUT CONTRAST Referring clinician's provided indication for this examination in [facility]: * Flank pain, kidney stone suspected TECHNIQUE: Multidetector-row CT of the abdomen and pelvis was performed without intravenous contrast using tailored dose modulation techniques. Images were reconstructed in the axial, coronal, and sagittal planes. COMPARISON: None. FINDINGS: Lower Chest: No consolidation or pleural effusions. Small hiatal hernia. Liver: No focal lesions. Biliary: Noninflamed gallbladder. No biliary ductal dilation. Spleen: No splenomegaly or focal lesions. Pancreas: No peripancreatic fat stranding or ductal dilation. Adrenal Glands: 0.8 cm nodule within the adrenal gland with Hounsfield units less than 0 (4:206). No right adrenal nodule. Kidneys/Ureters: There is a 4 mm obstructing stone within the proximal left ureter (900:43) resulting in mild periureteral and perinephric stranding at the renal hilum with mild fullness of the collecting system. Additional 3 mm nonobstructing stone in the right lower pole. Bowel: No dilation, bowel wall thickening or adjacent fat stranding. Normal appendix. Peritoneum/Retroperitoneum: No pneumoperitoneum or free fluid. Lymph Nodes: No lymphadenopathy. Pelvic Organs/Bladder: No significant abnormality. No bladder wall thickening or inflammation. Vessels: No abdominal aortic aneurysm. Bones/Soft Tissues: No significant abnormality. Procedure Note Christian Pritchard MD / System, Provider Not In, PhD - 03/06/2025 CT ABDOMEN/PELVIS (KIDNEY STONE) WITHOUT CONTRAST Referring clinician's provided indication for this examination in [facility]: *Flank pain, kidney stone suspected TECHNIQUE: Multidetector-row CT of the abdomen and pelvis was performedwithout intravenous contrast using tailored dose modulation techniques.Images were reconstructed in the axial, coronal, and sagittal planes. COMPARISON: None. FINDINGS: Lower Chest: No consolidation or pleural effusions. Small hiatal hernia. Liver: No focal lesions. Biliary: Noninflamed gallbladder. No biliary ductal dilation. Spleen: No splenomegaly or focal lesions. Pancreas: No peripancreatic fat stranding or ductal dilation. Adrenal Glands: 0.8 cm nodule within the adrenal gland with Hounsfieldunits less than 0 (4:206). No right adrenal nodule. Kidneys/Ureters: There is a 4 mm obstructing stone within the proximalleft ureter (900:43) resulting in mild periureteral and perinephricstranding at the renal hilum with mild fullness of the collecting system.Additional 3 mm nonobstructing stone in the right lower pole. Bowel: No dilation, bowel wall thickening or adjacent fat stranding.Normal appendix. Peritoneum/Retroperitoneum: No pneumoperitoneum or free fluid. Lymph Nodes: No lymphadenopathy. Pelvic Organs/Bladder: No significant abnormality. No bladder wallthickening or inflammation. Vessels: No abdominal aortic aneurysm. Bones/Soft Tissues: No significant abnormality. IMPRESSION: 1. 4 mm obstructing stone within the proximal left ureter resulting intrace hydronephrosis. 2. Additional 3 mm nonobstructing stone in the right lower pole. 3. 0.8 cm left adrenal nodule consistent with an adenoma. A clinically significant result was initiated on 03/06/2025 2:19 PM,Message ID [id number]. ATTESTATION: I, Christian Pritchard as teaching physician, have reviewed theimages for this case and if necessary edited the report originally createdby Mo Linder. Greta Soto PA-C IMG CT ABD/PELVIS Dean elizabeth Result - Final * (ABNORMAL) Urinalysis w/reflex Urine Culture (03/06/2025 1:03 PM EDT) COLOR JAKI(A) Yellow [facility] CLARITY TURBID [facility] GLUCOSE Negative Negative [facility] BILI 1+(A) Negative [facility] KETONES Trace(A) Negative [facility] SPECIFIC GRAVITY 1.020 1.005 - 1.030 [facility] BLOOD 3+(A) Negative [facility] PH 8.5(H) 5.0 - 8.0 [facility] Protein-UA 2+(A) Negative [facility] NITRITE Positive(A) Negative [facility] Leukocyte esterase, ur Negative Negative [facility] Urine (Urine) 03/06/2025 1:0 3 PM EDT 03/06/2025 2:13 PM EDT Oleg Maciel MD URINE ORDERABLES Final Result Performing Organization Address [facility]/ZIP Co de Phone Number [address] [address] * Urine Culture (03/06/2025 1:03 PM EDT) Special Requests None 03/06/2025 3:03 PM EDT [facility] Urine Culture <10,000 colony forming units per mL 03/08/2025 9:37 AM EDT [facility] Urine 03/06/2025 1:03 PM EDT 03/06/2025 3:02 PM EDT us Greta Soto PA-C MICROBIOLOGY - GENERA L ORDERABLES Final Result Performing Organization Address [facility] Co de Phone Number [address] [address] * (ABNORMAL) Urine sediment (03/06/2025 1:03 PM EDT) WBC 0-4(A) NONE SEEN /hpf [facility] RBC TOO NUMEROUS TO COUNT(A) NONE SEEN /hpf [facility] URINE EPITHELIAL 0-4(A) NONE SEEN [facility] MUCUS 1+(A) NONE SEEN /hpf [facility] BACTERIA Trace(A) NONE SEEN /hpf [facility] CRYSTALS Trace [facility] Comment:Calcium Oxalate 03/06/2025 1:03 PM EDT 03/06/2025 2:13 PM EDT us Oleg Maciel MD URINE ORDERABLES Final Result Performing Organization Address [facility] Co de Phone Number [address] [address] * LFTs (hepatic panel) (03/06/2025 11:43 AM EDT) ALKALINE PHOSPHATASE 60 39 - 117 U/L [facility] TOTAL BILIRUBIN 0.3 0.0 - 1.2 mg/dL [facility] DIRECT BILIRUBIN <0.1 0.0 - 0.2 mg/dL [facility] Bilirubin (Indirect) NOT CALCULATED 0 - 1.5 mg/dL [facility] AST 16 0 - 37 U/L [facility] ALT 25 0 - 40 U/L [facility] TOTAL PROTEIN 7.4 6.5 - 8.0 g/dL [facility] ALBUMIN 4.2 3.9 - 4.8 g/dL [facility] GLOBULIN 3.2 1 - 4.8 g/dL [facility] A/G Ratio 1.31 1.00 - 4.80 RATIO [facility] Blood 03/06/2025 11:4 3 AM EDT 03/06/2025 11:48 AM EDT us Oleg Maciel MD LAB BLOOD ORDERAB LES Final Result Performing Organization Address City/State/[facility] Co de Phone Number [address] [phone] * (ABNORMAL) CBC and differential (03/06/2025 11:43 AM EDT) WBC 11.17(H) 4.00 - 11.00 K/uL [facility] RBC 4.62 4.50 - 5.90 M/uL [facility] HGB 14.4 13.5 - 17.5 g/dL [facility] HCT 41.3 41.0 - 53.0 % [facility] PLT 242 150 - 450 K/uL [facility] MCV 89.4 80.0 - 100.0 fL [facility] MCH 31.2(H) 27.0 - 31.0 pg [facility] MCHC 34.9 32.0 - 36.0 g/dL [facility] RDW 12.0 11.5 - 14.5 % [facility] MPV 10.0 8.4 - 12.0 fL [facility] NRBC 0.00 0.00 /100 WBCs [facility] ABSOLUTE NRBC 0.00 0.00 K/uL [facility] DIFF METHOD Auto [facility] NEUTS 80.0(H) 48.0 - 76.0 % [facility] LYMPHS 13.1(L) 18.0 - 41.0 % [facility] MONOS 5.5 4.0 - 11.0 % [facility] EOS 0.6 0.0 - 5.0 % [facility] BASOS 0.4 0.0 - 1.5 % [facility] Granulocytes, immature (%) 0.4 0.0 - 0.9 % [facility] ABSOLUTE NEUTS 8.94(H) 1.92 - 7.60 K/uL [facility] ABSOLUTE LYMPHS 1.46 0.72 - 4.10 K/uL [facility] ABSOLUTE MONOS 0.61 0.16 - 1.10 K/uL [facility] ABSOLUTE EOS 0.07 0.00 - 0.50 K/uL [facility] ABSOLUTE BASOS 0.05 0.00 - 0.15 K/uL [facility] Granulocytes, immature 0.04 0.00 - 0.09 K/uL [facility] Blood 03/06/2025 11:4 3 AM EDT 03/06/2025 11:48 AM EDT us Oleg Maciel MD LAB BLOOD ORDERAB LES Final Result [address] [address] * Lipase (03/06/2025 11:43 AM EDT) LIPASE 25 16 - 63 U/L [facility] Blood 03/06/2025 11:4 3 AM EDT 03/06/2025 11:48 AM EDT us Oleg Maciel MD LAB BLOOD ORDERAB LES Final Result [address] [address] * (ABNORMAL) Basic metabolic panel (03/06/2025 11:43 AM EDT) SODIUM 140 133 - 146 mmol/L [facility] CHLORIDE 105 96 - 108 mmol/L [facility] POTASSIUM 3.9 3.3 - 5.1 mmol/L [facility] CO2 19(L) 21 - 35 mmol/L [facility] BUN 10 6 - 19 mg/dL [facility] CREATININE 1.20 0.5 - 1.5 mg/dL [facility] GLUCOSE 137(H) 70 - 99 mg/dL [facility] CALCIUM 9.3 8.4 - 10.3 mg/dL [facility] EGFR 81 >59 mL/min/1.7 3m2 [facility] Comment:Estimated glomerular filtration rate calculated using the CKD-EPI refit equation. ANION GAP 20 10 - 20 mmol/L [facility] Blood 03/06/2025 11:4 3 AM EDT 03/06/2025 11:48 AM EDT us Oleg Maciel MD LAB BLOOD ORDERAB LES Final Result Performing Organization Address City/State/[facility] Co de Phone Number [address] [address] * US BEDSIDE (03/06/2025 11:35 AM EDT) Anatomical Region Laterality Modality Ultrasound Narrative 03/06/2025 11:35 AM EDT Brendan Gilmore MD, COLBY 03/07/2025 8:59 AM Bedside Ultrasound Date/Time: 03/06/2025 11:35 AM Performed by: Greta Soto PA-C Authorized by: Greta Soto PA-C Exam Type: Renal Renal Exam Findings & Impression: Indications: patient with abdominal pain and flank pain Right Kidney: the right kidney was visualized and hydronephrosis was not present Left Kidney: the left kidney was visualized and hydronephrosis was not present Overall Impression: negative Images: Images Saved: Yes Accession Number: [id number] us Greta Soto PA-C IMG POINT OF CARE EXA MS Final Result from Last 3 Months Insurance ACO ACO ACO ACO ACO ACO ACO [facility] ACO [facility] ACO Care Teams Lab Analyst Relationship Specialty Start Date End Date Kash Pacheco MD [address] [place] [address] [place] [address] PCP - General Internal Medicine 01/20/22 Additional Source Comments The information contained in this document represents components of the legal health record. It is not the complete legal health record.[facility]
--- OUTSIDE RECORDS SUMMARY | 2025-04-02 18:36 | XMS_ITS | Encounter Summary ---
Author Organization [facility] Address [address] [place] [phone] Phone Care Team Providers Care Design Painter Name Role Phone Kash Pacheco MD Primary Care Provider [phone] [phone] Encounter Details Date Type Department Care Team (Late st Contact Info) Description 03/06/2025 Procedure Pass [facility], Ct Scan - [address] [address] Social History Tobacco Use Types Packs/Day Years [...] PM EDT documented as of this encounter Functional Status * Calculated C-SSRS Risk Score (Lifetime/Recent) Answer Date of Assessment Author No Risk Indicated 03/06/2025 11:04 AM EDT Roxann Meyers RN * [place] Suicide Severity Rating Scale (Screener/Recent Self-Report) Question Answer Date of Assessment Author 1. Wish to be (Past 1 Month) No 03/06/2025 11:04 AM EDT Selvin Garcia RN 2. Non-Specific Active Suicidal Thoughts (Past 1 Month) No 03/06/2025 11:04 AM EDT Selvin Garcia RN 6. Suicidal Behavior (Lifetime) No 03/06/2025 11:04 AM EDT Selvin Garcia RN documented as of this encounter Plan of Treatment Not on file documented as of this encounter Visit Diagnoses Not on filedocumented in this encounter Care Teams Design Painter Relationship Specialty Start Date End Date Kash Pacheco MD [address] [place] [address] [place] [id number] PCP - General Internal Medicine 01/20/22 documented as of this encounter Additional Source Comments The information contained in this document represents components of the legal health record. It is not the complete legal health record.[facility]
== END 2025-04-02 15:52 | disposition home or self-care (01) ==
LOC: HO.HMCH 15:21
PROVIDERS: PCP Internal Medicine
DX: N20.0 Calculus of kidney (principal); E27.8 Other specified disorders of adrenal gland

== ENCOUNTER → 2025-04-02 15:20 | Outpatient (BNVA) | payer OTHER, SELFPAY | PROVIDERS: PCP Internal Medicine | DX: N20.0 Calculus of kidney (principal); E27.8 Other specified disorders of adrenal gland; K44.9 Diaphragmatic hernia without obstruction or gangrene; F17.210 Nicotine dependence, cigarettes, uncomplicated | CPT/HCPCS: 99212 ==